=== PATIENT | female | born 1955 | race Caucasian/White ===

== ENCOUNTER 2024-04-24 10:57 | Emergency (ER) | payer SELFPAY ==
[2024-04-24] VITALS (7 sets, daily range): BP systolic 133–167; BP diastolic 66–94; BMI 22.2
--- NOTE | 2024-04-24 12:08 | ED.GENMED ---
History of Present Illness
<Rosita Marquez PA-C - Last Filed: 04/24/24 17:53>
General
Chief Complaint: Dehydration Symptoms
Source: patient
Exam Limitations: none
Time Seen by Provider: 04/24/24 12:07
Nursing documentation reviewed up to this point in time: agreed with
History of Present Illness
History of Present Illness:
This is a 69 y/o female with a pmh of rectal cancer who presents emergency department today with concerns of generalized weakness and fevers. Patient reports that the past week, she had flulike symptoms and had on and off fevers, cough, and
weakness. Patient denies any chest pain or shortness of breath. She notes that the respiratory symptoms have resolved and she has no cough but feels like that she still gets intermittent fevers. Patient reports that she had fever last night. She
also noted that her urine looked very cloudy but she denies any abdominal pain denies any pelvic pain. She denies any dysuria or hematuria. Patient also notes that she started to have atraumatic right hip pain a few days ago. Patient has a
history of polymyalgia rheumatica and has been on steroids for this in the past but states that the pain she is having right now is different than the pain with polymyalgia. Patient denies any numbness or tingling to right lower extremity. She
also notes right lower back pain but denies any flank pain. Patient does note that Tylenol significantly improved her hip pain.
Review of Systems
<Rosita Marquez PA-C - Last Filed: 04/24/24 17:53>
Review of Systems
All Other Systems: ROS reviewed and negative except as documented in HPI and ROS
Phy Exam
<Rosita Marquez PA-C - Last Filed: 04/24/24 17:53>
Physical Exam
Physical Exam:
General: Patient is well appearing and in no acute distress; non-toxic
Skin: Warm and dry, no rashes or lesions
Head: Normocephalic, atraumatic
Eyes: Sclera non-icteric. EOMs intact.
Cardiac: Regular rate and rhythm, no murmurs
Peripheral Vascular: No lower extremity swelling or edema
Pulm: Normal respiratory effort, no wheezes, rales, rhonchi
Abdomen: No abdominal tenderness to palpation
Musculoskeletal: No tenderness palpation of right hip joint, no pain with internal/external rotation of the right hip
Neuro: CN II-XII intact, no focal neurologic deficits.
Psychiatric: Appropriate mood and affect.
Course
<Rosita Maruqez PA-C - Last Filed: 04/24/24 17:53>
Orders/Labs/Results
Orders:
Orders
04/24/24 12:29
CR Hip - RT w/wo Pel 2-3 Vw* Urgent
Comment:
Reason For Exam: right hip pain
Include a pelvis x-ray?: Yes
04/24/24 12:30
CR Chest - 2 Views Urgent
Comment:
Reason For Exam: fever, flu like symptoms, immuncompromised
04/24/24 12:33
Complete Blood Count/With Diff Urgent
Comprehensive Metabolic Panel Urgent
Lipase Urgent
0.9% Sodium Chloride 1000 ml [Nss] 1,000 ml IV BOLUS
04/24/24 12:34
Urinalysis Reflex To Culture Urgent
Date Specimen was Collected: 04/24/24
Time Specimen was Collected: 12:31
Urine Microscopic Reflex Cult Urgent
Urine Culture Urgent
DARRYL Source: U
Specimen Description:
Date Specimen was Collected: 04/24/24
Time Specimen was Collected: 12:31
04/24/24 12:37
COVID-19 Antigen Urgent
Source: Nasal Swab
Influenza A+B Rapid Molecular Urgent
DARRYL Source: Nasal Swab
Specimen Description:
04/24/24 13:51
CT Abd/pel Without Iv Or Oral Urgent
Comment:
Reason For Exam: right flank pain
04/24/24 15:29
CefTRIAXone [Rocephin] 1,000 mg IV NOW STA
Abnormal Lab Results
04/24/24 04/24/24
12:33 12:34
MCH 31.1 H pg
(27.0-31.0)
Absolute Lymphs (auto) 1.0 L 10^3/uL
(1.2-3.4)
Absolute Monos (auto) 0.8 H 10^3/uL
(0.1-0.6)
Immature Gran % 0.6 H %
(0-0.5)
Lymphocytes % 19.4 L %
(20.5-51.1)
Monocytes % 15.6 H %
(1.7-9.3)
BUN 24 H mg/dl
(7-17)
Creatinine 0.5 L mg/dL
(0.6-1.0)
Glucose 123 H mg/dl
(70-99)
Total Bilirubin 1.8 H mg/dl
(0.2-1.3)
Alkaline Phosphatase 142 H U/L
(38-126)
Urine Ketones 3+ A
(Negative)
Ur Occult Blood Reflex 2+ A
(Negative)
Urine Bilirubin 1+ A
(Negative)
Leukocyte Esterase Rfl 1+ A
(Negative)
Urine RBC 3-6 A /HPF
(0-2)
Urine Bacteria (Reflex) Few A
(Negative)
Urine Glucose 1+ A
(Negative)
Urine Albumin (Reflex) 2+ A
(Neg - Trace)
04/24/24 12:33
04/24/24 12:33
Vital Signs
Initial and Last Documented VS:
Initial Vital Signs
Temp Pulse Resp BP Pulse Ox
98.1 F 87 16 133/94 100
04/24/24 10:59 04/24/24 10:59 04/24/24 10:59 04/24/24 10:59 04/24/24 10:59
Last Documented Vital Signs
Temp Pulse Resp BP Pulse Ox
98.1 F 67 15 153/72 98
04/24/24 10:59 04/24/24 15:45 04/24/24 15:45 04/24/24 15:30 04/24/24 14:00
<Marshall Nazario, DO - Last Filed: 04/24/24 14:04>
Orders/Labs/Results
Orders:
Orders
04/24/24 12:29
CR Hip - RT w/wo Pel 2-3 Vw* Urgent
Comment:
Reason For Exam: right hip pain
Include a pelvis x-ray?: Yes
04/24/24 12:30
CR Chest - 2 Views Urgent
Comment:
Reason For Exam: fever, flu like symptoms, immuncompromised
04/24/24 12:33
Complete Blood Count/With Diff Urgent
Comprehensive Metabolic Panel Urgent
Lipase Urgent
0.9% Sodium Chloride 1000 ml [Nss] 1,000 ml IV BOLUS
04/24/24 12:34
Urinalysis Reflex To Culture Urgent
Date Specimen was Collected: 04/24/24
Time Specimen was Collected: 12:31
Urine Microscopic Reflex Cult Urgent
Urine Culture Urgent
DARRYL Source: U
Specimen Description:
Date Specimen was Collected: 04/24/24
Time Specimen was Collected: 12:31
04/24/24 12:37
COVID-19 Antigen Urgent
Source: Nasal Swab
Influenza A+B Rapid Molecular Urgent
DARRYL Source: Nasal Swab
Specimen Description:
04/24/24 13:51
CT Abd/pel Without Iv Or Oral Urgent
Comment:
Reason For Exam: right flank pain
04/24/24 15:29
CefTRIAXone [Rocephin] 1,000 mg IV NOW STA
Abnormal Lab Results
04/24/24 04/24/24
12: 12:34
MCH 31.1 H pg
(27.0-31.0)
Absolute Lymphs (auto) 1.0 L 10^3/uL
(1.2-3.4)
Absolute Monos (auto) 0.8 H 10^3/uL
(0.1-0.6)
Immature Gran % 0.6 H %
(0-0.5)
Lymphocytes % 19.4 L %
(20.5-51.1)
Monocytes % 15.6 H %
(1.7-9.3)
BUN 24 H mg/dl
(7-17)
Creatinine 0.5 L mg/dL
(0.6-1.0)
Glucose 123 H mg/dl
(70-99)
Total Bilirubin 1.8 H mg/dl
(0.2-1.3)
Alkaline Phosphatase 142 H U/L
(38-126)
Urine Ketones 3+ A
(Negative)
Ur Occult Blood Reflex 2+ A
(Negative)
Urine Bilirubin 1+ A
(Negative)
Leukocyte Esterase Rfl 1+ A
(Negative)
Urine RBC 3-6 A /HPF
(0-2)
Urine Bacteria (Reflex) Few A
(Negative)
Urine Glucose 1+ A
(Negative)
Urine Albumin (Reflex) 2+ A
(Neg - Trace)
04/24/24 12:33
04/24/24 12:33
Vital Signs
Initial and Last Documented VS:
Initial Vital Signs
Temp Pulse Resp BP Pulse Ox
98.1 F 87 16 133/94 100
04/24/24 10:59 04/24/24 10:59 04/24/24 10:59 04/24/24 10:59 04/24/24 10:59
Last Documented Vital Signs
Temp Pulse Resp BP Pulse Ox
98.1 F 67 15 153/72 98
04/24/24 10:59 04/24/24 15:45 04/24/24 15:45 04/24/24 15:30 04/24/24 14:00
<Rosita Marquze PA-C - Last Filed: 04/24/24 17:53>
MDM/Problems Addressed
Differential Diagnosis Includes:
Differentials include urinary tract infection, influenza, neutropenia, polymyalgia rheumatica, pathologic fracture
MDM/Problems Addressed:
69-year-old female with past medical history of rectal cancer currently on chemo, polymyalgia rheumatica who presents emergency department today with concerns of generalized weakness and fevers. Had flulike symptoms the past week which has since
resolved but was concerned because she had fever last week. She noted her urine was cloudy but she denies any dysuria or pelvic pain. Her urinalysis is concerning for possible infection. In light of occult blood noted as well as calcium oxalate
crystals, did send patient for CT scan to rule out stone. CT scan was negative for stone but did show retroperitoneal lymphadenopathy with surrounding fat stranding likely related to rectal cancer however infection/inflammatory process could appear
similar. In light of this finding as well as abnormal urinalysis we will start on Keflex. Patient given a dose of Rocephin in the IV. Return precautions discussed. Hip x-ray negative for any fracture or dislocation. Patient stable for discharge.
Chronic conditions affecting care:
rectal cancer
<Rosita Marquez PA-C - Last Filed: 04/24/24 17:53>
*Pulse Oximetry
Patient hypoxic: no
*Critical Care Note
Total Time (30-74mins, 75-104mins- exclusive of procedures): Not Applicable
Data Reviewed
Review of Other/Old Records Reveals: Records (Reviewed [facility] no previous ER physician documentation to review patient's oncologist is associated with [facility])
Source: patient and records
ED Attending Note
<Rosita Marquez PA-C - Last Filed: 04/24/24 17:53>
-
Portions of this chart may have been created with voice recognition software.� Occasional wrong word or��sound alike� substitutions may have occurred due to the inherent limitations of voice recognition software.
<Marshall Nazario DO - Last Filed: 04/24/24 14:04>
ED Attending Note
Patient seen and examined by attending physician: Yes
ED Attending Note:
Seen with RUBY examined independently 69-year-old female oncology patient 10 days fatigue, fever, cloudy urine, hip pain, labs noted chest x-ray noted urine noted, will check stone search CT rule out ureteral stone
Discharge Plan
Departure
Patient Disposition: Home (Routine Discharge)
Date of Disposition: 04/24/24
Time of Disposition: 15:58
Patient with high blood pressure during this ER visit?: Yes
Condition: Good
Discharge Problem:
Dehydration, Weakness
Instructions: Dehydration, Adult (DC), Urinary tract infection - Discharge instructions, BLOOD PRESSURE
Prescriptions:
New
cephalexin 500 mg capsule
500 mg PO BID 7 Days Qty: 14 0RF
Activity Restrictions/Additional Instructions:
Keflex has been sent to your pharmacy. Please take one tablet twice daily for 5 days.
Please follow up with your oncologist and primary care provider.
PLEASE RETURN TO THE ER SHOULD YOU EXPERIENCE INTRACTABLE FEVERS OR CHILLS, INTRACTABLE NAUSEA OR VOMITING, INABILITY TO AMBULATE, LIGHTEADEDNESS, DIZZINESS, OR ANY OTHER SIGNS OR SYMPTOMS WORRISOME TO YOU.
Interventions
Interventions:
*Risk Screen - Suicide Last Done: 04/24/24 11:02
*General Assessment Last Done: 04/24/24 12:43
*Neglect/Abuse Screening Last Done: 04/24/24 11:02
ED- Fall Risk Assessment Last Done: 04/24/24 12:43
*Nursing Disposition Last Done: 04/24/24 16:05
ED- Cardiac Assessment Last Done: 04/24/24 12:43
ED- Neurological Assessment Last Done: 04/24/24 12:43
ED- Pulmonary Assessment Last Done: 04/24/24 12:43
Discharge Date and Time
Discharge Date/Time: 04/24/24 16:12
Print Language: ICELANDIC
[2024-04-24] MEDS: NSS 1000 IV (12:34)
[2024-04-24 12:54] LABS: % Basophils 0.4 % (0-2); % Eosinophils 0.4 % (0-6); % Immature Granulocytes 0.6 % (0-0.5); % Lymphocytes 19.4 % (20.5-51.1); % Monocytes 15.6 % (1.7-9.3); % Neutrophils 63.6 % (42.2-75.2); Absolute Monocytes 0.8 10^3/uL (0.1-0.6); Absolute Neutrophils 3.4 10^3/uL (1.4-6.5); Hematocrit 39.8 % (37.0-47.0); Hemoglobin 13.9 g/dL (12.0-16.0); Mean Corp Hgb Conc. 34.9 g/dL (33.0-37.0); Mean Corpuscular Hgb 31.1 pg (27.0-31.0); Mean Platelet Volume 10.2 fL (7.4-10.4); Nucleated Red Blood Cells % 0 %; Platelet Count 205 10^3/uL (130-400); Red Blood Cell Count 4.47 10^6/uL (4.20-5.40); Red Cell Dist. Width 13.4 % (11.5-14.5); White Blood Cell Count 5.3 10^3/uL (4.8-10.8)
[2024-04-24 13:04] LABS: Urine Albumin 2+ (Neg - Trace); Urine Bilirubin 1+ (Negative); Urine Character Clear (Clear); Urine Color Yellow; Urine Glucose 1+ (Negative); Urine Ketone 3+ (Negative); Urine Leukocyte 1+ (Negative); Urine Nitrite Negative (Negative); Urine Occult Blood 2+ (Negative); Urine Specific Gravity 1.025 (<1.030); Urine Urobilinogen 1+ (Neg - 1+)
[2024-04-24 13:09] LABS: ALT (SGPT) 25 U/L (0-35); AST (SGOT) 35 U/L (14-36); Albumin 4.3 g/dl (3.5-5.0); Alkaline Phosphatase 142 U/L (38-126); Blood Urea Nitrogen 24 mg/dl (7-17); Calcium 9.5 mg/dl (8.4-10.2); Carbon Dioxide 25 mmol/L (22-30); Chloride 100 mmol/L (98-107); Estimated Creatinine Clearance 82 ml/min; Glucose 123 mg/dl (70-99); Lipase 87 U/L (23-300); Potassium 3.8 mmol/L (3.5-5.1); Sodium 135 mmol/L (135-145); Total Bilirubin 1.8 mg/dl (0.2-1.3); Total Protein 7.3 g/dl (6.3-8.2); eGFR > 60.00
[2024-04-24 13:22] LABS: COVID-19 Antigen Negative (Negative)
[2024-04-24 13:39] LABS: Urine Calcium Oxalate Crystals Present; Urine Mucus Moderate
[2024-04-24 13:41] LABS: Urine Bacteria Few (Negative)
[2024-04-24] MEDS: ROCEPHIN 1000 MG IV (15:35)
== END 2024-04-24 16:12 | disposition home or self-care (01) ==
LOC: EMR 10:57
PROVIDERS: Physician Assistant; EMERGENCY PHYSICIAN Emergency Medicine; FAMILY PHYSICIAN Internal Medicine
DX: E86.0 Dehydration (principal); R53.1 Weakness; R50.9 Fever, unspecified; M25.551 Pain in right hip; R05.9 Cough, unspecified; M54.50 Low back pain, unspecified; R03.0 Elevated blood-pressure reading, without diagnosis of hypertension; C20 Malignant neoplasm of rectum; M35.3 Polymyalgia rheumatica; Z88.1 Allergy status to other antibiotic agents; Z88.5 Allergy status to narcotic agent
CPT/HCPCS: 99284; 96374; 71046; 73502; 74176; 80053; 81003; 81015; 83690; 85025; 87086; 87502; 87811

== ENCOUNTER 2024-11-20 19:34 | Observation (INO) | payer MEDICARE, OTHER, SELFPAY ==
[2024-11-20] VITALS (8 sets, daily range): BP systolic 136–158; BP diastolic 69–86; BMI 22.4; BMI 22.0
[2024-11-20 13:56] LABS: Hematocrit 36.6 % (37.0-47.0); Hemoglobin 12.4 g/dL (12.0-16.0); Mean Corp Hgb Conc. 33.9 g/dL (33.0-37.0); Mean Corpuscular Volume 89.9 fL (81.0-99.0); Nucleated Red Blood Cells % 0 %; Platelet Count 290 10^3/uL (130-400); Red Cell Dist. Width 13.5 % (11.5-14.5)
[2024-11-20 14:22] LABS: ALT (SGPT) 29 U/L (0-35); AST (SGOT) 32 U/L (14-36); Albumin 4.6 g/dl (3.5-5.0); Alkaline Phosphatase 182 U/L (38-126); Blood Urea Nitrogen 16 mg/dl (7-17); Calcium 10.2 mg/dl (8.4-10.2); Carbon Dioxide 22 mmol/L (22-30); Chloride 104 mmol/L (98-107); Glucose 174 mg/dl (70-99); Lipase 35 U/L (23-300); Potassium 3.7 mmol/L (3.5-5.1); Sodium 138 mmol/L (135-145); Total Protein 7.5 g/dl (6.3-8.2); eGFR > 60.00
[2024-11-20] MEDS: TORADOL 15 MG IV (14:41)
[2024-11-20] MEDS: NSS 1000 IV ×2 (14:44→21:19)
[2024-11-20 16:15] LABS: Urine Character Clear (Clear)
[2024-11-20 16:21] LABS: Urine Red Blood Cell 0-2 /HPF (0-2)
[2024-11-20 16:22] LABS: Urine White Cell 0-2 /HPF (0-5)
--- NOTE | 2024-11-20 16:38 | ED.GENMED ---
History of Present Illness
General
Chief Complaint: Abdominal Pain
Source: patient
Exam Limitations: none
Time Seen by Provider: 11/20/24 14:08
Nursing documentation reviewed up to this point in time: agreed with
History of Present Illness
History of Present Illness:
Patient is a 69-year-old female with history of rectal cancer with metastatic spread to the abdomen who presents to the emergency department with abdominal pain. Patient states that yesterday she began with a dull pain in her right upper back which
was shortly followed by significant nausea. Patient states her back pain seems somewhat improved however this morning she noticed abdominal pain which had migrated into the right abdomen with persistent nausea.
She denies any fevers or episodes of vomiting. She has not had any chest pain or shortness of breath. She has not had any diarrhea or constipation. No urinary symptoms.
Patient is currently receiving Keytruda for rectal cancer. She does states she has somewhat chronic back pain due to spinal stenosis.
Review of Systems
Review of Systems
Allergies reviewed?: Yes
All Other Systems: ROS reviewed and negative except as documented in HPI and ROS
Phy Exam
Physical Exam
Physical Exam:
Vitals: Mildly hypertensive and tachycardic on arrival. Afebrile
General: Patient is in no distress. Nontoxic
Skin: Warm and dry, no rashes or lesions
Head: Normocephalic, atraumatic
Eyes: Sclera nonicteric.
Throat: Protecting airway
Neck: Normal ROM, no cervical spine tenderness, no meningismus
Cardiac: Regular rate and rhythm, no murmurs.
Pulm: Normal respiratory effort. Lungs clear bilaterally
Abdomen: Abdomen soft. Somewhat diffuse tenderness throughout abdomen with focal area of tenderness in right lower quadrant with voluntary guarding. No rebound tenderness
Extremities: No evidence of cyanosis or edema.
Neuro: AAOx3. Grossly intact.
Psychiatric: Normal affect.
Course
Orders/Labs/Results
Orders:
Orders
11/20/24 13:50
Complete Blood Count/With Diff Urgent
Comprehensive Metabolic Panel Urgent
Lipase Urgent
11/20/24 14:21
0.9% Sodium Chloride 1000 ml [Nss] 1,000 ml IV BOLUS
Ketorolac [Toradol] 15 mg IV NOW STA
11/20/24 14:22
CT Abd/pelvis W Iv Cont Urgent
Comment:
Reason For Exam: RLQ pain, mid back pain, nausea
11/20/24 14:25
Electrocardiogram (*1) Urgent
Reason for Study: Abdominal Pain
EKG- Treatment ONCE
11/20/24 14:38
Lactic Acid Q4H
Comment: CANCEL 2nd LACTIC ACID IF 1st LACTIC ACID IS LESS THAN 2
11/20/24 Dinner
Clear Liquid
11/20/24 16:08
Urinalysis Reflex To Culture Urgent
Date Specimen was Collected: 11/20/24
Time Specimen was Collected: 16:01
Urine Microscopic Reflex Cult Urgent
11/20/24 17:07
Consult Surgery [SURGICAL CONSULT] Urgent
Consulting Provider: Jose Pena
Was physician already notified: Yes
11/20/24 18:07
Piperacillin/Tazo 3.375 Gram [Zosyn] 3.375 gram in 50 ml IV NOW
11/20/24 18:22
Admit/Transfer Patient As Directed
Co-Sign Provider:
Level of Care: Observation services
Assign to:: Medical/Surgical
Physician / Group: Bello Medina
Diagnosis: Abdominal pain Metastasis from rectal cancer
PRN Pain Medication Management As Directed
May give lesser potent ordered pain med per pt: Yes
preference::
Protocol:: Medication orders for pain may be administered in a
manner that supports deferring to patient preference
when the pt is:
- Requesting an ordered lesser potent pain medication.
Least to most potent pain medications are defined
as: acetaminophen < NSAID < tramadol < opioids
(morphine, oxycodone, hydromorphone).
- Requesting a lesser dose of the same medication IF
ORDERED.
- Requesting a less intrusive route of administration
if both routes are prescribed by the provider (PO <
IV).
11/20/24 18:25
Code Status As Directed
Resuscitation Status: Full Code
11/20/24 18:30
Lactic Acid Q4H
Comment: CANCEL 2nd LACTIC ACID IF 1st LACTIC ACID IS LESS THAN 2
11/20/24 20:45
0.9% Sodium Chloride 1000 ml [Nss] 1,000 ml IV 100 mls/hr
Acetaminophen [Tylenol] 650 mg PO Q4HPRN PRN
Ketorolac [Toradol] 10 mg IV Q6HPRN PRN
Morphine Sulfate 2 mg IV Q4HPRN PRN
Ondansetron Injectable [Zofran] 4 mg IV Q6HPRN PRN
11/20/24 20:45
Activity As Directed
Activity Level: Ambulate
Pneumatic Compression Sleeves As Directed
Type: Knee high
Vital Signs As Directed
Frequency: Per unit guidelines
Weight As Directed
Frequency: Once
Comment: on admission
DX Deep Vein Thrombosis Video Routine
11/21/24 00:00
Piperacillin/Tazo 3.375 Gram [Zosyn] 3.375 gram in 50 ml IV Q6H
11/21/24 06:00
Basic Metabolic Panel IN AM
Complete Blood Count/No Diff IN AM
Abnormal Lab Results
11/20/24 11/20/24
13:50 16:08
RBC 4.07 L 10^6/uL
(4.20-5.40)
Hct 36.6 L %
(37.0-47.0)
Absolute Neuts (auto) 6.6 H 10^3/uL
(1.4-6.5)
Lymphocytes % 17.8 L %
(20.5-51.1)
Glucose 174 H mg/dl
(70-99)
Total Bilirubin 2.5 H mg/dl
(0.2-1.3)
Alkaline Phosphatase 182 H U/L
(38-126)
Urine Ketones 3+ A
(Negative)
Ur Occult Blood Reflex 1+ A
(Negative)
Urine Bacteria (Reflex) Few A
(Negative)
Urine Albumin (Reflex) 2+ A
(Neg - Trace)
11/20/24 13:50
11/20/24 13:50
Vital Signs
Temp: 97.7 F
Initial and Last Documented VS:
Initial Vital Signs
Pulse Resp BP Pulse Ox
102 16 136/80 100
11/20/24 13:41 11/20/24 13:41 11/20/24 13:41 11/20/24 13:41
Last Documented Vital Signs
Temp Pulse Resp BP Pulse Ox
97.7 F 84 26 145/77 99
11/20/24 17:07 11/20/24 20:15 11/20/24 20:15 11/20/24 20:00 11/20/24 20:00
MDM/Problems Addressed
Differential Diagnosis Includes:
Not limited to: Progression of disease, appendicitis, biliary colic, acute cholecystitis, choledocholithiasis, bowel obstruction, gastritis, etc.
MDM/Problems Addressed:
69-year-old female with history as documented significant for metastatic rectal cancer presenting with 1 day of right sided abdominal pain associated with nausea and mid back discomfort. Patient denies known fever or episodes of vomiting. No
urinary symptoms. No associated chest pain or shortness of breath. Patient mildly tachycardic on arrival however afebrile. Physical exam as above. She appears in no distress and is nontoxic appearing. Cardio/pulmonary assessment unremarkable.
Abdomen is soft with somewhat diffuse tenderness however there is focal tenderness in right lower quadrant with voluntary guarding. Some reproducible tenderness in right upper flank as well.
Differential broad. Given history of metastatic cancer�concern for progression of disease. Other considerations would be acute intra-abdominal infection including acute cholecystitis, appendicitis, pancreatitis, diverticulitis, etc. ED plan:
Labs, lactic acid, UA. Will check CT scan abdomen/pelvis. Will treat pain, give IV fluids and reassess.
Update: Labs without clinically significant abnormalities. Alkaline phosphatase elevated to 182 which is likely secondary to known malignancy. Urine does not appear infected. CT scan unfortunately shows significant progression of disease with new
metastasis to liver and lymph nodes, as well as right adrenal gland. Appendix noted in pelvis mildly dilated with some adjacent stranding�possible early appendicitis.
Case was discussed with general surgery, Dr. Pena for ED consult.
In regard to back pain�possibly secondary to metastatic spread to liver.
Update: Dr. Mota down to evaluate patient at bedside who says does feel imaging and exam consistent with possible acute appendicitis. However�after discussion with patient�they will plan for nonoperative management. Plan to admit patient to
hospitalist service for further observation with IV antibiotics, IV fluids, clear liquid diet.
Zosyn given in emergency department. Patient accepted to hospitalist service in stable condition. Patient seen with attending physician.
Chronic conditions affecting care:
Metastatic rectal cancer
Acute Exacerbation and/or Progression of Chronic Illness:
Acute progression of metastatic rectal cancer
*Radiology
Radiology exam reviewed: radiology read reviewed
*Pulse Oximetry
SaO2: 100
Oxygen Mode of Delivery: Room air
Patient hypoxic: no
*EKG
Interpreted by ED Provider?: Yes
EKG Intrepretation Date: 11/20/24
Interpretation: abnormal
Comparison EKG: no comparison EKG present
Heart Rate: 80
Rate: normal
Rhythm: sinus
[place]: normal axis
Interval: normal QT interval
QRS Pattern: normal QRS
Ischemia: no ischemia
*Plastic Tool Maker Interpretation
Rate: normal
Interpretation: abnormal
Heart Rate: 86
Rhythm: sinus
*Critical Care Note
Total Time (30-74mins, 75-104mins- exclusive of procedures): Not Applicable
Patient Management
Discussion with other providers: Hospitalist and Union Organizer (Case discussed w/ general surgery)
Escalation/DeEscalation of care consider admission/obs:
Admit indicated
ED Attending Note
-
Portions of this chart may have been created with voice recognition software.� Occasional wrong word or��sound alike� substitutions may have occurred due to the inherent limitations of voice recognition software.
Discharge Plan
Departure
Patient Disposition: Admit
Date of Disposition: 11/20/24
Time of Disposition: 18:07
Presentation/result/management discussed w/ accepting MD/DO: Hospitalist
Discharge Problem:
Abdominal pain, Metastasis from rectal cancer
Interventions
Interventions:
*Risk Screen - Suicide Last Done: 11/20/24 20:52
*General Assessment Last Done: 11/20/24 15:13
*Neglect/Abuse Screening Last Done: 11/20/24 13:45
*ED- Fall Risk Assessment Last Done: 11/20/24 15:13
*ED COVID-19 Vaccine History Last Done: 11/20/24 20:52
*Nursing Disposition Last Done: 11/20/24 21:00
QY-Vzityb-Pyalwgbfue Assessment Last Done: 11/20/24 20:00
Discharge Date and Time
Discharge Date/Time: 11/20/24 20:45
--- NOTE | 2024-11-20 18:17 | HPS.HSE ---
Family Physician
-
Family Physician: Demetria Barr
Chief Complaint
-
Abdominal and back pain
History of Present Illness
Pleasant and unfortunate 69-year-old female with history of metastatic or stage IV rectal cancer for the last 3-1/2-year and currently on Keytruda, presented to the hospital with his sister complaining of 24-hour history of initially started as
right side back pain then to epigastric area shifted to the right side of the abdomen, admitted poor appetite, nausea but no vomiting, the pain was moderate in nature worse when she was walking around or laying on it, denies any diarrhea
constipation or rectal bleed or any changes stool or urine color or any urinary urgency.
Admit chills and subjective fever but no temperature documented.
Denies sick contacts or recent travel, in the ER CT scan can concerning for acute appendicitis with already known mets in the liver.
Seen by surgery they recommended clear liquid diet, IV fluid and IV Zosyn.
Given Toradol in the ER overall feels much better, accompanied by his sister at the bedside.
She is not on any scheduled medication only takes Aleve as needed.
Medical History
Past Medical History
Past Medical History: Reports Other
Additional Past Medical History:
Past medical history and Reviewed
Metastatic rectal cancer
Social history: Lives alone independently denies smoking alcohol use or any drug.
Family history: Reviewed and noncontributory
Past Surgical History: Reports Other
Social History
Unable to obtain full social history at this time due to: Other
Family History
Family History: Other
Allergies / Home Medications
Allergies reflects when Allergies were last updated in [facility].
Home Medications with original date entered in [facility]
Allergy/Medication List:
Allergies
Allergy/AdvReac Type Severity Reaction Status Date / Time
ciprofloxacin (From Cipro) Allergy Unknown Unknown Verified 04/24/24 11:02
codeine Allergy Unknown Unknown Verified 04/24/24 11:02
Home Medications
Not on any scheduled medication
Only Aleve as needed
Review of Systems
-
A 12 point ROS was completed and negative except as noted: Yes
Physical Exam
Vital Signs
Vital Signs
Temp Pulse Resp BP Pulse Ox
97.7 F 77 16 155/78 99
11/20/24 17:07 11/20/24 17:30 11/20/24 15:30 11/20/24 17:00 11/20/24 17:30
Physical exam:
General: Awake, alert and oriented x3, not in distress and holds appropriate conversation.
HEENT: No active discharge, ecchymosis or bruising, moist lips, tongue and mucous membrane.
Eyes: No discharge or red conjunctiva, no nystagmus, pupils are reactive and equal
Neck:Supple, no JVD no bruit no goiter.
Respiratory: Normal AP contour and diameter, normal chest wall movement, normal respiratory effort, no respiratory distress,
Lungs: Good air entry bilaterally, no wheezing or rhonchi, no rales or crackles
Heart: S1, S2 regular, normal rate, no added sound.
Gastrointestinal: Positive bowel sounds, soft, right lower quadrant tenderness with rebound but no guarding or rigidity or organomegaly
Musculoskeletal: , no chest wall abnormality or tenderness. All joints and extremities have good range of motion, no muscle tenderness or any joint swelling or tenderness.
Extremities: No pitting edema, good peripheral pulses, good range of motion
Skin: Warm and dry, no ulceration, normal color.
Neurological: Awake, alert and oriented x3, normal mentation, good muscle tone and moves extremities freely, speech clear and comprehensive,
Psychiatric: Normal mood, normal thought and judgment, normal affect,
Physical Exam
General: Other
Laboratory Results
-
11/20/24 13:50
11/20/24 13:50
Laboratory Results
Lactic Acid 2.0 mmol/L (0.7-2.0) 11/20/24 14:38
Total Bilirubin 2.5 mg/dl (0.2-1.3) H 11/20/24 13:50
AST 32 U/L (14-36) 11/20/24 13:50
ALT 29 U/L (0-35) 11/20/24 13:50
Alkaline Phosphatase 182 U/L (38-126) H 11/20/24 13:50
Lipase 35 U/L (23-300) 11/20/24 13:50
CT abdomen and pelvis:
Several new small scattered slightly low-attenuation hepatic lesions, new heterogeneous right adrenal lesion and progression of retroperitoneal lymphadenopathy, all suspicious for progression of metastatic rectal carcinoma.
Cecum located within the soft tissues of the true pelvis with tubular structure possibly questionably representing a portion of the appendix measuring up to approximately 1.0 cm, limited in evaluation, with some adjacent stranding seen, image 62,
series 201, stranding may be related to the right ovary. Unfortunately, acute appendicitis cannot be excluded.
EKG: Showed normal sinus rhythm rate around 80, DE 144, QT 392 with nonspecific Abnormality otherwise no acute finding
Data Reviewed
-
Diagnostic Radiology: Image Personally Visualized and interpreted and Discussed with Patient
Lab Data: Labs Reviewed by me and Discussed with Patient
Old Records: Reviewed
Impression/Plan
-
IMPRESSION:
69-year-old female presented to the hospital complaining of epigastric pain initially then radiated to right side of the abdomen and back pain, workup currently concerning for acute appendicitis. While other causes need to be considered with known
history of metastatic rectal cancer to liver
Acute right-sided abdominal pain:
- Can concern for acute appendicitis while other causes need to be considered including mets in the liver
- Seen by surgery recommended IV fluid, IV Zosyn, clear liquid diet and monitor.
- IV morphine and Toradol as needed
- Tylenol as needed
- Encourage oral hydration
Metastatic rectal cancer:
- Patient on Keytruda every 3-week.
- Pain management
Elevated bilirubin and alkaline phosphatase:
- Likely secondary to metastatic rectal cancer to liver
All discussed with the patient in detail and expressed understanding of the question answered
CODE STATUS full code
DVT prophylaxis: SCDs in case goes to the OR.
[2024-11-20] MEDS: ZOSYN 50 IV ×2 (18:37→23:59)
--- NOTE | 2024-11-20 19:12 | CON.GS ---
Consultation
-
Date/Time Consultation Requested: 11/20/2024 5 PM
Date/Time Consultation Performed: 11/20/2024 6 PM
Requesting Provider: Emergency department
Performing Provider: Dr. Pena
Reason for Consultation: Right lower quadrant abdominal pain
Medical History
-
Chief Complaint: Abdominal pain
History of Present Illness:
This is a 69-year-old female with history of rectal cancer status post resection ([facility]) complicated by recurrence with metastatic abdominal spread for the past 3.5 years currently on Keytruda who presents to our hospital with a
24-hour period of abdominal pain initially the midline then more to the right lower quadrant. Some nausea but no vomiting. No diarrhea.
Past Medical History
Past Medical History: Other (Stage IV rectal cancer)
Past Surgical History: Other (Partial colectomy via lower midline incision)
Social History
Tobacco: Non-Smoker
Alcohol: None
Drug: None
Family History
Family History: Reviewed & Not Pertinent
Allergies / Home Medications
Allergy/AdvReac Type Severity Reaction Status Date / Time
ciprofloxacin (From Cipro) Allergy Unknown Unknown Verified 04/24/24 11:02
codeine Allergy Unknown Unknown Verified 04/24/24 11:02
�Medication �Instructions �Recorded �Confirmed �Type
No Meds [No Current Medications] 11/20/24 11/20/24 History
Review of Systems
-
All other systems: Negative unless noted
Constitutional: No Symptoms
A 10 point review of systems was completed, and was negative except as per HPI.
Physical Exam
Vital Signs
Temp Pulse Resp BP Pulse Ox
97.7 F 81 18 155/86 99
11/20/24 17:07 11/20/24 18:45 11/20/24 18:45 11/20/24 18:00 11/20/24 18:45
11/19/24 11/20/24 11/21/24
06:59 06:59 06:59
Actual Weight 63 kg
Body Mass Index (BMI) 22.4
Lab Results
11/20/24 13:50
11/20/24 13:50
WBC 8.9 10^3/uL (4.8-10.8) 11/20/24 13:50
Hgb 12.4 g/dL (12.0-16.0) 11/20/24 13:50
Hct 36.6 % (37.0-47.0) L 11/20/24 13:50
Plt Count 290 10^3/uL (130-400) 11/20/24 13:50
Abs Immat Gran (auto) 0.0 10^3/uL (0-0.05) 11/20/24 13:50
Neutrophils % 74.0 % (42.2-75.2) 11/20/24 13:50
Physical Exam
General: Well Developed
HEENT: Normocephalic
Respiratory: Non Labored Respirations
GI: Soft, Non Distended and Tender (Tender to palpation in the right lower quadrant)
Neuro: AO x 3
Data Reviewed
-
CT Scan: Image Personally Visualized and interpreted, Report Reviewed by me, Discussed with Patient and Discussed with Family
Labs: Labs Reviewed by me
Total Time Spent with Patient (in minutes): 35
Assessment / Plan
-
This is a very pleasant 69-year-old female with a history of rectal cancer now with known metastasis in the abdomen on Keytruda who presents with 24 hours of abdominal pain, now more focal in the right lower quadrant. Exam, and imaging consistent
with acute appendicitis without appendicolith.
Had a discussion with the patient regarding both operative and nonoperative management as well as the pros and cons of each. For now she is elected to pursue nonoperative management with antibiotics alone.
Would recommend admitting her here for observation at least given her comorbidities.
Okay for clears.
Aram, will plan for a 7-day course.
If patient improves clinically likely okay to discharge tomorrow.
If she clinically worsens/fails to improve we will plan for a laparoscopic appendectomy this admission.
I spent 75 minutes in total for the care of this patient today including direct patient care and counseling, reviewing labs, imaging, coordination of care, as well as documentation.
--- NOTE | 2024-11-20 20:50 | TRANSFER ---
Pt arrived from ED by stretcher. Ambulated to room. AAOx3. VSS stable. Right AC IV running with NSS @ 100. Pt has a port that was last accessed 3 weeks ago, but not accessed here due to unknown port type. Hard of hearing with B/L hearing aids in
ears. Call romero within reach.
[2024-11-21] MEDS: TORADOL 10 MG IV ×2 (02:08→23:54)
[2024-11-21] MEDS: ZOSYN 50 IV ×3 (06:02→17:15)
[2024-11-21 07:17] VITALS: BP 141/81
[2024-11-21 07:53] LABS: Hematocrit 28.9 % (37.0-47.0); Hemoglobin 9.9 g/dL (12.0-16.0); Mean Corp Hgb Conc. 34.3 g/dL (33.0-37.0); Mean Corpuscular Volume 90.9 fL (81.0-99.0); Platelet Count 183 10^3/uL (130-400); Red Cell Dist. Width 13.5 % (11.5-14.5)
[2024-11-21 08:16] LABS: Blood Urea Nitrogen 13 mg/dl (7-17); Calcium 8.8 mg/dl (8.4-10.2); Carbon Dioxide 26 mmol/L (22-30); Chloride 107 mmol/L (98-107); Estimated Creatinine Clearance 82 ml/min; Glucose 96 mg/dl (70-99); Potassium 3.5 mmol/L (3.5-5.1); Sodium 138 mmol/L (135-145); eGFR > 60.00
[2024-11-21] MEDS: MIRALAX 17 GRAMS PO ×2 (08:41→14:16)
[2024-11-21] MEDS: NSS IV (09:50)
--- NOTE | 2024-11-21 10:21 | W.PN.HOSP.TC ---
Today's Communication/Plan
-
Assessment / Plan
Assessment / Plan
General: No Apparent Distress, Comfortable and Conversant
HEENT: NormoCephalic, Moist mucous membranes, Atraumatic
Respiratory: Clear and Non Labored Respirations
Cardiac: S1/S2 and Regular Rhythm; No Rub or Gallop
GI: Soft, Non Tender, Non Distended and Normal Bowel Sounds
Musculoskeletal: No Edema, no deformity
Skin: Warm and dry
: NO Senior
Neuro: Awake, Alert, Nonfocal/grossly intact
Psych: Calm and Intact Judgment/Insight
Ms. Collazo is a 69-year-old female with medical history of metastatic rectal cancer (metastases noted 3.5 years ago, currently on Keytruda) who presented with abdominal pain and back pain. He also had associated nausea without vomiting. CT
imaging was concerning for acute appendicitis and redemonstrated known metastases in the liver. She was started on IV fluids and antibiotics with Zosyn. She was evaluated by general surgery and current plan is for nonoperative management.
Acute appendicitis:
- Nonoperative management for now after considering risks versus benefits and metastatic rectal cancer
- Advance from clears to regular diet for now
- Continue antibiotics with Zosyn, will plan for total 7-day course of antibiotics
- Pain control as needed
- If clinically deteriorates would consider laparoscopic appendectomy, otherwise will discharge home with follow-up
- Appreciate general surgery guidance
Metastatic rectal cancer:
- On Keytruda
- Continue follow-up with primary oncologist
DVT prophylaxis: SCDs
CODE STATUS: Full code
Total time spent on today's encounter was 42 minutes
Anticipated Discharge: 24 - 48 hours
Subjective/Interval History
-
Date of Service: November 21, 2024
Patient was seen and examined at bedside this morning. Feeling more comfortable today after pain medications. Proceeding with conservative management for possible appendicitis. Will trial a regular diet today.
Objective Data
-
Labs:
Laboratory Results
11/21/24
06:54
WBC 5.9
Hgb 9.9 L D
Hct 28.9 L
Plt Count 183 D
Sodium 138
Potassium 3.5
Chloride 107
Carbon Dioxide 26
BUN 13
Creatinine 0.5 L
Glucose 96
Calcium 8.8
Vital Signs:
Vital Signs
Temp Pulse Resp BP Pulse Ox
98.3 F 74 18 141/81 98
11/21/24 07:17 11/21/24 07:17 11/21/24 07:17 11/21/24 07:17 11/21/24 08:15
Review of Systems
-
History Source: Patient
All other systems: Reviewed and negative
Abdomen/GI: Reports Abdominal Pain
Physical Exam
-
General: No Apparent Distress
[2024-11-21 10:42] LABS: C-Reactive Protein 43.50 mg/L (0.0-10.00)
--- NOTE | 2024-11-21 11:05 | W.PN.GS2 ---
Addendum entered and electronically signed by Tnoy Funez MD 11/21/24 11:31:
Patient seen and examined.
Reports improvement overall though with some continued abdominal discomfort. No nausea or vomiting. Passing flatus, last BM yesterday. She does report chronic issues with constipation. Afebrile.
Gen: NAD
Abd: soft, tender in RLQ and suprapubic location, lower midline well healed, ND, non-peritoneal
Patient is a 69 yo F p/w acute appendicitis
Prior discussions regarding options for management. Given her history with metastatic rectal cancer, she is at increased risk for operative complications related to scarring and potentially peritoneal implants in the vicinity of her appendicitis.
Currently on medical management with antibiotics with reports of clinical improvement. CRP ordered to help trend and provide some objective data on improvement, WBC normal on admission and remains normal today.
-- Continue with medical management of appendicitis
-- Regular diet
-- Abx: Zosyn
-- CRP
-- Dispo pending clinical course
-- Will need 10 days of abx and outpatient follow-up to review/discuss interval appendectomy
Original Note:
Today's Communication / Plan
-
Advance diet
Continue ABX
Assessment / Plan
-
69 yo female with h/o rectal cancer status post resection ([facility]) complicated by recurrence with metastatic abdominal spread for the past 3.5 years currently on Keytruda who presents with acute appendicitis (no appendicolith)
following with nonoperative management
AFVSS
No leukocytosis but left shift present
No evidence of active bleeding
Feeling better overall on IV ABX, tenderness still present
Plan:
Advance diet to regular
Add bowel regimen with Miralax
Continue ABX
Pending dietary tolerance and improvement in pain may be ready for d/c later today vs tomorrow on PO ABX x7-10 day
OP surgical follow up after completion of abx
Subjective Data
-
Date of Service: November 21, 2024
Pt seen and examined at bedside with Dr. Funez. Denies n/v. Overall feeling a little better. Passing a lot of flatus. Feels constipated, passed a small hard bm yesterday.
Objective Data
-
Vital Signs
Temp Pulse Resp BP Pulse Ox
98.3 F 74 18 141/81 98
11/21/24 07:17 11/21/24 07:17 11/21/24 07:17 11/21/24 07:17 11/21/24 08:15
Lab Results
11/21/24 06:54
11/21/24 06:54
Calcium 8.8 mg/dl (8.4-10.2) 11/21/24 06:54
Total Bilirubin 2.5 mg/dl (0.2-1.3) H 11/20/24 13:50
AST 32 U/L (14-36) 11/20/24 13:50
ALT 29 U/L (0-35) 11/20/24 13:50
Alkaline Phosphatase 182 U/L (38-126) H 11/20/24 13:50
Total Protein 7.5 g/dl (6.3-8.2) 11/20/24 13:50
Albumin 4.6 g/dl (3.5-5.0) 11/20/24 13:50
Physical Exam
-
NAD
ABD soft, tender to RLQ, ND
[2024-11-21 11:44] VITALS: BMI 22.0
--- NOTE | 2024-11-21 14:11 | CM ---
Alert awake oriented patient who lives alone in an apartment with 8 steps to enter.She is independent in driving and all ADLS.She uses a cane.Offered VN she declined need.SHAIKH letter given explained . Pt declined to sign Shaikh.
No VN/SNF hx.
Pharmacy [facility]
PCP [facility] Kell Chan.
PLAN Home no needs
[2024-11-21] MEDS: SENOKOT-S 1 TABLET PO ×2 (14:16→20:09)
[2024-11-21 15:33] VITALS: BP 139/74
[2024-11-21] MEDS: NSS 1000 IV (15:49)
[2024-11-21 23:45] VITALS: BP 140/78
[2024-11-22] MEDS: ZOSYN 50 IV ×3 (05:54→11:01)
[2024-11-22 07:48] VITALS: BP 137/63
[2024-11-22 08:06] LABS: Hematocrit 31.8 % (37.0-47.0); Hemoglobin 10.7 g/dL (12.0-16.0); Mean Corp Hgb Conc. 33.6 g/dL (33.0-37.0); Mean Corpuscular Volume 89.3 fL (81.0-99.0); Platelet Count 205 10^3/uL (130-400); Red Cell Dist. Width 13.4 % (11.5-14.5)
[2024-11-22 08:37] LABS: C-Reactive Protein 41.40 mg/L (0.0-10.00)
[2024-11-22] MEDS: MIRALAX PO (08:39)
[2024-11-22] MEDS: SENOKOT-S PO (08:39)
[2024-11-22] MEDS: NSS 1000 IV (08:41)
[2024-11-22] MEDS: TYLENOL 650 MG PO (08:42)
--- NOTE | 2024-11-22 10:54 | W.DCSUMMARY ---
Discharge Summary
Discharge Data
Date of Admission: 11/20/24
Date of Discharge: 11/22/24
Total time spent discharging patient (in min): 55
-
Pending Results: No
Hospital Course
Ms. Collazo is a 69-year-old female with medical history of metastatic rectal cancer (metastases noted 3.5 years ago, currently on Keytruda) who presented with abdominal pain and back pain. She also had associated nausea without vomiting. CT
imaging was concerning for acute appendicitis and redemonstrated known metastases in the liver. She was started on IV fluids and antibiotics with Zosyn. She was evaluated by general surgery and current plan is for nonoperative management.
She was monitored on IV antibiotics and tolerated a clear liquid diet with no progression of her symptoms. She was advanced to a regular diet which she also tolerated well. Considering her clinical improvement and continued plan for nonoperative
management, she was able to be switched to oral antibiotics and discharged to home. She will continue antibiotic treatment with Augmentin for another 8 days to complete a total 10-day antibiotic course. She will need to follow-up in the outpatient
clinic with general surgery. She will also need to follow-up closely with her primary care physician and with her primary oncologist. At the time of hospital discharge she was medically stable.
General: No Apparent Distress, Comfortable and Conversant
HEENT: NormoCephalic, Moist mucous membranes, Atraumatic
Respiratory: Clear and Non Labored Respirations
Cardiac: S1/S2 and Regular Rhythm; No Rub or Gallop
GI: Soft, Non Tender, Non Distended and Normal Bowel Sounds
Musculoskeletal: No Edema, no deformity
Skin: Warm and dry
: NO Senior
Neuro: Awake, Alert, Nonfocal/grossly intact
Psych: Calm and Intact Judgment/Insight
Discharge Plan
-
Patient Disposition: Home (Routine Discharge)
Discharge Diagnosis/Procedures: Acute appendicitis
Diet: As tolerated and Regular
Activity Restrictions/Additional Instructions:
Ms. Collazo is a 69-year-old female with medical history of metastatic rectal cancer (metastases noted 3.5 years ago, currently on Keytruda) who presented with abdominal pain and back pain. She also had associated nausea without vomiting. CT
imaging was concerning for acute appendicitis and redemonstrated known metastases in the liver. She was started on IV fluids and antibiotics with Zosyn. She was evaluated by general surgery and current plan is for nonoperative management.
She was monitored on IV antibiotics and tolerated a clear liquid diet with no progression of her symptoms. She was advanced to a regular diet which she also tolerated well. Considering her clinical improvement and continued plan for nonoperative
management, she was able to be switched to oral antibiotics and discharged to home. She will continue antibiotic treatment with Augmentin for another 8 days to complete a total 10-day antibiotic course. She will need to follow-up in the outpatient
clinic with general surgery. She will also need to follow-up closely with her primary care physician and with her primary oncologist. At the time of hospital discharge she was medically stable.
Referrals:
Demetria Barr MD [Family Provider, Internal Medicine]
Jose Pena MD [Active, Surgical] - in two to four weeks
Prescriptions:
New
amoxicillin-pot clavulanate 875-125 mg tablet
1 tab PO BID 8 Days Qty: 16 0RF
Discharge Orders:
Discharge Patient (As Directed); Ordered 11/22/24
Ordered By: Chu Singh
Discharge Date and Time
Print Language: WELSH
--- NOTE | 2024-11-22 11:32 | W.PN.GS2 ---
Today's Communication / Plan
-
dispo planning
Assessment / Plan
-
69 yo female with h/o rectal cancer status post resection ([facility]) complicated by recurrence with metastatic abdominal spread for the past 3.5 years currently on Keytruda who presents with acute appendicitis (no appendicolith)
following with nonoperative management
AFVSS
RLQ tenderness resolved
Tolerating diet
Ovarll feeling much better
Plan:
Continue regular diet
Continue ABX, transition to Po for total of 10 day course
OP surgical follow up after completion of abx
Ok for d/c from surgical standpoint
Subjective Data
-
Date of Service: November 22, 2024
Pt seen and examined at bedside. Denies n/v. Tolerating diet. Passed several stools and flatus. No further RLQ pain. Back sore from lying in bed. Still with fatigue.
Objective Data
-
Intake and Output
11/21/24 11/22/24 11/23/24
06:59 06:59 06:59
Intake Total 270 / 270
Balance 270 / 270
Intake:
Oral fluids 270 / 270
Other:
Number of approximated MODERATE 2
amounts of urine
Vital Signs
Temp Pulse Resp BP Pulse Ox
98.2 F 70 16 137/63 98
11/22/24 07:48 11/22/24 07:48 11/22/24 07:48 11/22/24 07:48 11/22/24 07:48
Lab Results
11/22/24 07:20
11/21/24 06:54
Calcium 8.8 mg/dl (8.4-10.2) 11/21/24 06:54
Total Bilirubin 2.5 mg/dl (0.2-1.3) H 11/20/24 13:50
AST 32 U/L (14-36) 11/20/24 13:50
ALT 29 U/L (0-35) 11/20/24 13:50
Alkaline Phosphatase 182 U/L (38-126) H 11/20/24 13:50
Total Protein 7.5 g/dl (6.3-8.2) 11/20/24 13:50
Albumin 4.6 g/dl (3.5-5.0) 11/20/24 13:50
Physical Exam
-
NAD
ABD soft, NT, ND
--- NOTE | 2024-11-22 11:56 | CM ---
Patient seen at bedside
Discharge today
SHAIKH form signed/in chart
PLAN: Home, no needs
sister to transport
[2024-11-22 12:01] VITALS: BP 134/80
== END 2024-11-22 12:24 | disposition home or self-care (01) ==
LOC: 3 WEST ACU 19:34
PROVIDERS: Emergency Medicine; Nurse Practitioner Family; Physician Assistant; Registered Nurse; ADMITTING PHYSICIAN Internal Medicine; ATTENDING PHYSICIAN Internal Medicine; CONSULT PHYSICIAN Surgery; EMERGENCY PHYSICIAN Emergency Medicine; FAMILY PHYSICIAN Internal Medicine
DX: K35.80 Unspecified acute appendicitis (principal); C20 Malignant neoplasm of rectum; C79.71 Secondary malignant neoplasm of right adrenal gland; C78.7 Secondary malignant neoplasm of liver and intrahepatic bile duct; G89.29 Other chronic pain; M48.00 Spinal stenosis, site unspecified
CPT/HCPCS: 74177; 80048; 80053; 81003; 81015; 83605; 83690; 85025; 85027; 86140; 93005; 96361; 96365; 96375; 99285; G0378; Q9967